=== PATIENT | male | born 1930 | race Caucasian/White ===

== ENCOUNTER 2018-05-14 11:37 | Day surgery (SDC) | payer OTHER ==
--- NOTE | 2018-05-09 08:07 | MH ---
cc: Aurelio Peterson MD DATE OF ADMISSION: 05/14/2018 HISTORY OF PRESENT ILLNESS: The patient is an 87-year-old white male, followed in our office by Dr. Luther Pollock, with a history of coronary artery disease, congestive heart failure, hypertension, hyperlipidemia, ischemic cardiomyopathy with ejection fraction of 25-30 percent by echo 04/29/2018, who is now admitted for AICD generator replacement. His AICD battery has been found to be nearing end of life on a routine check. Clinically, he has been doing fairly well, denying any chest pains, shortness of breath, dizziness, syncope, near syncope, palpitations, paroxysmal nocturnal dyspnea. PAST MEDICAL HISTORY: 1. Chronic atrial fibrillation. 2. Coronary artery disease, status post 3-vessel bypass surgery in 2009. 3. Carotid artery disease with history of left carotid stenting by Dr. Henok Santana. 4. Ischemic cardiomyopathy with ejection fraction of 25-30 percent by echo this month. 5. Hyperlipidemia. 6. Hypertension. 7. Biotronik AICD implant 02/26/2011. CARDIAC MEDICATIONS: 1. Aspirin 81 mg daily. 2. Atorvastatin 20 mg at bedtime. 3. Digoxin 0.125 mg daily. 4. Furosemide 20 mg daily. 5. Klor-Con 10 mEq daily. 6. Losartan 50 mg daily. 7. Metoprolol tartrate 25 mg b.i.d. 8. Xarelto 15 mg daily. ALLERGIES: 1. MORPHINE. 2. VOLTAREN. FAMILY HISTORY: Noncontributory. SOCIAL HISTORY: The patient is a former smoker. There is no history of alcohol abuse. REVIEW OF SYSTEMS: As in the history of present illness, otherwise negative or noncontributory. PHYSICAL EXAM: VITAL SIGNS: His blood pressure 118/64 with a pulse of 75, respirations 15. GENERAL: He is a well-developed, well-nourished white male, in no acute distress. NECK: Jugular venous pressure is normal. Carotid pulses are 2+ bilaterally and without bruits. CHEST: Examination reveals clear lungs castro. CARDIAC: He has a regular rhythm and rate without S3, S4, or murmur. ABDOMEN: He has a soft, nontender abdomen. Bowel sounds are present. There is no definite hepatosplenomegaly. EXTREMITIES: Reveals no clubbing, cyanosis or edema. IMPRESSION: AICD battery nearing end of life in this 87-year-old white male with a history of coronary artery disease, severe ischemic cardiomyopathy, hypertension, hyperlipidemia. The patient is [place] Heart Association class III. The nature of AICD generator replacement and potential risks have been outlined to the patient who agrees to proceed. PLAN: AICD generator replacement and AICD defibrillation threshold testing on 05/14/2018. MD VISHNU Shine/CRISTY , 09:50 AM , 10:06 AM MAYTE
[~2018-05-14] VITALS: Ht 182.9 cm; Wt 66.8 kg
[~2018-05-14 11:37] MED LIST: ASPI81 PO; CARV6.252 PO; CLOP75 PO; COUM5TAB PO; COZA100T PO; ISOS30TA3 PO; LASI20TA PO; LIDO5DIS35 TD; NITR0.4S SL; POTA-243 PO; TIMO0.5S6 OU; TRAV0.00 BOTH EYES; TYLE3 PO
[2018-05-14] MEDS ORDERED: NS 1000 ML IV SCH (12:00)
[2018-05-14] MEDS ORDERED: PROPOFOL 200 MG/20 ML AMP IV ONE (12:00)
[2018-05-14] MEDS ORDERED: ePHEDrine/NS 25 MG/5 ML SYRINGE IV ONE (12:00)
[2018-05-14] MEDS ORDERED: LIDOCAINE HCL 1% PF 5 ML SYRINGE OTHER ONE (12:00)
[2018-05-14] MEDS ORDERED: METOPROLOL TARTRATE 25 MG TAB PO PRN (12:15)
[2018-05-14] MEDS ORDERED: POVIDONE IODINE 5% (ANTISEPSIS KIT) 4 APPLICATIONS EACH NARE SCH (12:15)
[2018-05-14] MEDS ORDERED: LACTATED RINGER'S 1000 ML IV PRN (12:15)
[2018-05-14] MEDS ORDERED: ceFAZolin 2 GM PREMIX 50 ML IV SCH (12:15)
[2018-05-14] MEDS ORDERED: SODIUM CHLORID 0.9% 500 ML IV PRN (12:15)
[2018-05-14] MEDS ORDERED: CHLORHEXIDINE GLUCONATE 2 % 1 PACK (2 CLOTHS) TOPICAL PRN (12:15)
[2018-05-14] MEDS ORDERED: VANCOMYCIN 1000 MG/NS 200 ML IV SCH (12:15)
[2018-05-14] MEDS ORDERED: MUPIROCIN 2% OINT 1 APPLIC/GM SYR NASAL SCH (12:15)
[2018-05-14] MEDS ORDERED: CHLORHEXIDINE GLUCONATE 2 % 1 PACK (2 CLOTHS) TOPICAL SCH (12:15)
[2018-05-14] MEDS ORDERED: POVIDONE IODINE 5% (ANTISEPSIS KIT) 4 APPLICATIONS EACH NARE PRN (12:15)
[2018-05-14] MEDS ORDERED: METO25TA3 PO (12:41)
[2018-05-14] MEDS ORDERED: VITA250T5 PO (12:41)
[2018-05-14] MEDS ORDERED: ATOR20TA15 PO (12:41)
[2018-05-14] MEDS ORDERED: FURO20TA PO (12:41)
[2018-05-14] MEDS ORDERED: ASPI81CH6 CHEW (12:41)
[2018-05-14] MEDS ORDERED: FERR325T20 (12:41)
[2018-05-14] MEDS ORDERED: DIGO0.12 PO (12:41)
[2018-05-14] MEDS ORDERED: LOSA50TA PO (12:41)
[2018-05-14] MEDS ORDERED: TIMO0.5S30 EACH EYE (12:41)
[2018-05-14] MEDS ORDERED: XARE15TA PO (12:41)
[2018-05-14] MEDS ORDERED: LEVO50TA4 PO (12:41)
[2018-05-14] MEDS ORDERED: CODCAP6 (12:41)
[2018-05-14] MEDS ORDERED: NITR1SUB3 SL (12:41)
[2018-05-14] MEDS ORDERED: ALLO100T PO (12:41)
[2018-05-14] MEDS ORDERED: KLOR10TA PO (12:41)
[2018-05-14] MEDS ORDERED: ESSE250T PO (12:41)
[2018-05-14] MEDS ORDERED: LATA0.002 EACH EYE (12:41)
[2018-05-14 12:48] LABS: AUTOMATED NEUTROPHIL # 5.5 TH/MM3 (1.8-7.7); BASOPHIL % 0.4 % (0.0-2.0); EOSINOPHIL # 0.1 TH/MM3 (0-0.4); EOSINOPHIL % 1.6 % (0.0-4.0); HEMATOCRIT 41.8 % (39.0-51.0); HEMOGLOBIN 13.9 GM/DL (13.0-17.0); LYMPH % 18.1 % (9.0-44.0); LYMPHOCYTE # 1.4 TH/MM3 (1.0-4.8); MEAN CELL VOLUME 106.7 FL (80.0-100.0); MEAN CORPUSCULAR HEMOGLOBIN 35.6 PG (27.0-34.0); MEAN CORPUSCULAR HGB CONC 33.3 % (32.0-36.0); MEAN PLATELET VOLUME 10.5 FL (7.0-11.0); MONOCYTE # 0.7 TH/MM3 (0-0.9); NEUT % 70.9 % (16.0-70.0); PLATELET COUNT 116 TH/MM3 (150-450); RED BLOOD COUNT 3.91 MIL/MM3 (4.50-5.90); RED CELL DISTRIBUTION WIDTH 14.8 % (11.6-17.2); WHITE BLOOD COUNT 7.7 TH/MM3 (4.0-11.0)
[2018-05-14 12:55] LABS: INTERNATIONAL NORMALIZED RATIO 1.2 RATIO
[2018-05-14 13:19] LABS: CREATININE 2.08 MG/DL (0.60-1.30)
[2018-05-14 13:20] LABS: BICARBONATE 27.9 MEQ/L (21.0-32.0)
[2018-05-14] MEDS ORDERED: ceFAZolin INJ 1,000 MG VIAL ONE (13:51)
[2018-05-14] MEDS ORDERED: VANCOMYCIN HCL 1000 MG VIAL ONE (13:51)
[2018-05-14] MEDS ORDERED: LIDOCAINE HCL 2% 20 ML VIAL ONE (13:51)
[2018-05-14] MEDS ORDERED: ACETAMINOPHEN 325 MG TAB PO PRN (15:00)
[2018-05-14] MEDS ORDERED: LEVA500T33 PO (15:01)
--- NOTE | 2018-05-14 15:11 | MP ---
cc: Aurelio Peterson MD, Joshua A MD DATE OF OPERATION: 05/14/2018 PROCEDURE PERFORMED: 1. AICD generator replacement. 2. AICD defibrillation threshold testing. OPERATIVE NOTES: The patient was brought to the operating suite in a fasting state after having signed informed consent. The left upper chest was prepped and draped as per policy and anesthetized with 1% lidocaine. A transverse incision was made over the preexisting generator and using blunt dissection, the generator was freed from the subcutaneous pocket. A plasma blade was also used. The leads were disconnected and then reconnected to the new generator, which is a Biotronik Iperia device. Atrial and ventricular lead sensing and pacing parameters were found to be good. The leads and the generator were placed back into the subcutaneous pocket, which was closed using 3-0 Vicryl interrupted stitches in 2-3 layers to close the subcutaneous tissue and then 4-0 Monocryl running stitch to close the subcuticular tissue. Testing of the device was performed. Ventricular fibrillation was induced. The patient was successfully rescued with a 20-joule shock after a charge time of 4 seconds. Overlapping Steri-Strips and a dressing were applied. There were no apparent, immediate complications. CONCLUSIONS: 1. Status post automatic implantable cardioverter-defibrillator generator replacement using a Biotronik Iperia AICD generator. 2. Status post automatic implantable cardioverter-defibrillator defibrillation threshold testing. Aurelio Peterson MD [facility] , 02:55 PM , 03:09 PM [facility]
--- NOTE | 2018-05-14 15:15 | CATHPROC ---
[facility] HIS Report Study Information Study Number Admission Scheduled Start Study Start [id number] May 14 2018 11:37AM 05/14/2018 May 14 2018 1:50PM [place] [facility] Cardiac Pacer/ICD Admit Source Facility Department Other [facility] - Software Sales Executive Physician and Clinical Staff Initial MD Peterson, Aurelio Bilingual Hr Generalist Yris Escobedo,IVETTE Other Anesthesia, WIRE BENDER Recorder Claudia Marcus,RT(R) TECH2 Scrub Robbie Mosquera,RT(R) Scrub Michelle Hernandez,RT(R) Equipment Time Management Accounts Manager Description Size Mfg Part Number Used/Scraped DEFIBRILLATOR, IPERIA [address] LANE 14:29 BIOTRONIK VDE-DDDR [id number] Used PhoneGuard-USA 14:40 [employer] FIDELINA, HEMOSTAT 1 GRAM Used *[id number] 14:17 MEDLINE ZMP BLANKET,WARM AIR CCL * Used *[id number] 14:17 Editlite SUTURE, STRIP PLUS 1/2" * Used *[id number] 14:17 MEDLINE PACER ADHESIVE, MASTISOL 2/3CC 2/3CC 0523-48 Used 14:17 MEDLINE PACER RABAGO, LIMB * 2530 *[id number] Used [id number] 14:17 MEDLINE PACER PACK, PACER CUSTOM * Used *[id number] 14:17 MEDLINE PACER PEN, SKIN DUAL W/ RULER * Used *[id number] 14:36 Needle Sponge Count 1 111 Used 14:36 Needle Sponge Count 1 1 Used 14:38 Needle Sponge Count 2 2 Used 14:39 Needle Sponge Count 2 22 Used 14:36 Needle Sponge Count 25 1 Used [id number] *[id number] SUTURE, 3-0 VICRYL [SH] ([id number]) SUTURE, 3-0 VICRYL [SH] ([id number]) SUTURE, 4-0 MONOCRYL [PS2] ([id number]) [place] PAD, ELECTROSURGICAL 14:17 * [id number] *[id number] Used SURGICAL GROUNDING ORANGE [id number] 14:18 VITATRON MEDTRONIC PLASMABLADE, PEAD 3.0S * Used *[id number] 14:17 ZOLL [employer] SONIYA. / * Used *[id number] Equipment Model, Serial, Lot Number and Expiration Data Description Model Number Serial Number Lot Number Expiration Date DEFIBRILLATOR, IPERIA [address] [id number] 04-17-2019 PROMRI History: Current Medications Medication Dosage/Unit Route Frequency Last Date/Time Taken Statins (any) LOPRESSOR History: Allergies Allergy Reaction morphine HALLUCINATIONS oxycodone diclofenac Medication Medication Total Dose (Bolus/Oral) Medication Total Dosage/Unit 2% XYLOCAINE 50 mL Medications (Bolus/Oral) Medication Time Given Dosage/Unit Administered By Reason 2% XYLOCAINE 05/14/2018 2:26:26 PM 50 mL Aurelio Peterson 50 mL 2% XYLOCAINE given in lab by Aurelio Peterson via Subcutaneous. Ordered by Aurelio Peterson. administer ed to left upper chest Medication (Drip) Medication Time Given Dosage/Unit Concentration/Unit Diluent (ml) Solutio n ANCEF 05/14/2018 2:10:38 PM 1 g 1 g ANCEF given in lab by Anesthesia, WIRE BENDER in Right Antecubital via Peripheral IV. Ordered by Aurelio Peterson. IV Solutions 05/14/2018 2:03:04 PM 0 mL (IV) 500 NaCl .9 IV Solutions given pre op in Right Antecubital via Peripheral IV. Pump/Drip Flow = 20 ml/hr using NaC l .9. IV Solutions 05/14/2018 2:03:05 PM 0 mL (IV) 500 NaCl .9 IV Solutions given pre op in Left Antecubital via Peripheral IV. Pump/Drip Flow = 20 ml/hr using NaCl .9. VANCOMYCIN DRIP 05/14/2018 2:05:46 PM 1 g 1 g VANCOMYCIN DRIP given in lab by Anesthesia, WIRE BENDER in Right Antecubital via Peripheral IV. Ordered by Aurelio Peterson. VANCOMYCIN DRIP 05/14/2018 2:13:30 PM 1 g 1 g VANCOMYCIN DRIP given in lab by Anesthesia, WIRE BENDER via Peripheral IV. Ordered by Aurelio Peterson. Initial Case Assessment Cardiovascular HR Rhythm NIBP Chest Pain 60 atrial paced 89/54 0 Edema Present Skin color Skin None Normal Warm Dry Neurological State Oriented to time-place- Alert Moves all extremities person Respiration - General Respiration Rate SpO2 (%) (B/min) 18 99 Final Case Assessment Cardiovascular HR Rhythm NIBP Chest Pain 60 paced 118/58 0 Edema Present Skin color Skin None Normal Warm Dry Neurological State Oriented to time-place- Alert Moves all extremities person Respiration - General Respiration Rate SpO2 (%) (B/min) 18 100 Chronological Log Time Study Chronological Log 13:38:00 Patient arrived via Bed. 14::26 Patient Name, D.O.B, / Armband Verified By R.N. 14::26 Consent signed by the physician and the patient and verified by the Software Sales Executive staff. 14:01:27 Pre-op and post- op instructions given; patient acknowledges understanding of instructions. 14:01:28 Anesthesia at bedside. Assumes care of patient. Clara WIRE BENDER present 14:01:37 Presedation assessment performed by Software Sales Executive RN. 14:01:38 Patient has been NPO for More than 6Hrs. 14:01:39 Skin Breakdown-none per patient 14:02:59 Disposable Defibrillator Pads Placed On Patient. 14:03:00 A # 20 IV was noted in the Antecubital (left). Grade = 0 14:03:00 Patient Warmer Placed on the Table. 14:03:01 A # 20 IV was noted in the Antecubital (right). Grade = 0 14:03:01 Jimena Prominences Protected 14:03:04 IV Solutions given pre op in Right Antecubital via Peripheral IV. Pump/Drip Flow = 20 ml/hr using NaCl .9. 14:03:05 IV Solutions given pre op in Left Antecubital via Peripheral IV. Pump/Drip Flow = 20 ml/hr using NaCl .9. 14:03:05 History and physical on the chart or being dictated. Assessment: Initial Case, HR=60 BPM, Rhythm=atrial paced, NIBP=89/54 mmhg, Chest Pain=0, Edema= None, Color=Normal, Skin = Warm, Dry 14:03:06 Neurological: State=Alert, Ox3, WHITE Respiration: Resp=18 B/min, SpO2=99 % 14:03:07 Left Upper Chest Prepped Times Two. 14:03:10 MD responded in house 1 g VANCOMYCIN DRIP given in lab by Anesthesia, WIRE BENDER in Right Antecubital via Peripheral IV. Or dered by Kristen 14:05:46 Aurelio. 14:10:13 Disposable Defibrillator Pads Placed On Patient. 14:10:13 Bovie ground pad applied to: right hip 14:10:20 2% CHLORHEXIDINE GLUCONATE WASH AND NASAL SWIPE DONE PRIOR TO PROCEDURE. First Sponge And Instrument Count Done by Yris Escobedo, RN. 14:10:23 Hypo's: 2, Sponges: 25, Bovie/scratch: 2 Sutures: 6, Blades: 2, Instruments: 26, Syveck Patches: 0 14:10:38 1 g ANCEF given in lab by Anesthesia, WIRE BENDER in Right Antecubital via Peripheral IV. Ordered by Aurelio Peterson. 14:12:30 Dr. Peterson is on the way. 14:13:30 1 g VANCOMYCIN DRIP given in lab by Anesthesia, WIRE BENDER via Peripheral IV. Ordered by Unruly Peterson. 14:14:17 Reference ECG taken 14:19:22 Implant Procedure was performed. 14:19:30 A ICD Removal . (Dual) 14:19:37 A ICD Implant . (Dual) 14:20:32 MD arrived. 14:21:47 Lead placement verified under fluoroscopy Time Out #2 - Consents verified, patient in correct position, all results are labled and displa yed, safety precautions 14:24:30 taken, antibiotics administered. Time out concurred by MD, individual staff and WIRE BENDER in procedu re Time Out. Correct patient, procedure, procedure equipment, site and side verified with physicia n present. Time 14:24:35 concurred by MD, individual staff and WIRE BENDER. 14:24:51 Case Start 50 mL 2% XYLOCAINE given in lab by Aurelio Peterson via Subcutaneous. Ordered by Aurelio Peterson. admi nistered to left 14:26:26 upper chest 14:27:10 Surgical Incision Made with PlasmaBlade 14:27:18 A pocket was re-opened at the L Upper Chest. 14:28:37 A device was explanted. 14:28:59 A DEFIBRILLATOR, IPERIA 7 LANE PROMRI VDE-DDDR was connected and placed in the pocket. 14:32:18 PACU called. Spoke to Claudia Second Sponge And Instrument Count Done by Yris Escobedo, RN. 14:36:43 Hypo's: 1, Sponges: 25, Bovie/scratch: bovie/scratch Sutures: 3, Blades: 2, Instruments: 26, Syveck Patches: 0 14:40:11 Fidelina powder sprinkled into pocket. 14:48:41 The pocket was closed. 14:49:51 A two Joule DFT was performed. 14:50:32 The DFT was Success at 20 Joules, 68 Ohms lead impedance and 4000 ms charge time. 14:54:21 Case End (Physician broke scrub) The Final Sponge And Instrument Count Done by Aurelio Peterson. 14:54:24 Hypo's: 2, Sponges: 25, Bovie/scratch: 2 Sutures: 6, Blades: 2, Instruments: 26, Syveck Patches: ~SYVECK PATCH~ 14:54:38 Steri-strips and a sterile dressing applied to site. 14:54:42 Bedside Report will be given. Assessment: Final Case, HR=60 BPM, Rhythm=paced, PJZG=264/58 mmhg, Chest Pain=0, Edema=None, Color=Normal, Skin = Warm, Dry 14:55:25 Neurological: State=Alert, Ox3, WHITE Respiration: Resp=18 B/min, YoL9=486 % 14:56:04 PACU notified again that we were finished with procedure. 14:56:30 No case complications noted. 15:10:36 [facility] - [facility] Media Used In Study Contrast Total Opened (mL) Total Used (mL) Total Wasted (mL) Unspecified 0 0 0 End Study - Radiation Exposure Fluoro Time (minutes) 0.1 End Study - Patient Disposition Complications Transferred To No Outpatient Bed
[2018-05-14] MEDS ORDERED: DO NOT ADM ANY ANTICOAGULANT DRUGS PRN (15:20)
[2018-05-14 16:00] VITALS: BP 123/66; PULSE 63; RESP 16; TEMP 97.5; O2SAT 97
--- NOTE | 2018-05-16 11:39 | EKG ---
Date Performed: 05/14/2018 Time Performed: 12:36:38 PTAGE: 87 years EKG: Ventricular paced rhythm with occasional PVC Abnormal ECG PREVIOUS TRACING : 07/21/2010 01.47 Compared to previous tracing, ventricular paced rhythm is n ow evident. DOCTOR: Aurelio Peterson Interpretating Date/Time 05/16/2018 11:37:18
== END 2018-05-14 17:19 | disposition home or self-care (01) ==
LOC: HDOC 11:37 → HDIC 11:38 → HDOC 17:19
PROVIDERS: ATTEND Internal Medicine Cardiovascular Disease
DX: Z45.02 Encounter for adjustment and management of automatic implantable cardiac defibrillator (principal); I11.0 Hypertensive heart disease with heart failure; I50.9 Heart failure, unspecified; I48.2 Chronic atrial fibrillation; I25.10 Atherosclerotic heart disease of native coronary artery without angina pectoris; I25.5 Ischemic cardiomyopathy; E78.5 Hyperlipidemia, unspecified; Z79.82 Long term (current) use of aspirin; Z79.01 Long term (current) use of anticoagulants; Z87.891 Personal history of nicotine dependence; Z01.818 Encounter for other preprocedural examination
CPT/HCPCS: 00400; 33263; 80048; 85025; 85610; 85730; 93005; 93641; C1721; J0690; J3010; J3370